=== PATIENT | male | born 1940 | race Caucasian/White ===

== ENCOUNTER 2018-12-31 20:43 | Observation (INO) | payer OTHER ==
--- NOTE | 2018-12-31 21:18 | EDPHY ---
H & P Stated Complaint: increased difficulty walking, Fever, Hx parkinson's recent stem cell tx Time Seen by Provider: 12/31/18 21:17 - Personal History Current Tetanus Diphtheria and Acellular Pertussis (TDAP): Yes - Medical/Surgical History Hx Asthma: No Hx Chronic Respiratory Disease: No Hx Diabetes: No Hx Cardiac Disease: Yes Hx Renal Disease: No Hx Cirrhosis: No Hx Alcoholism: No Hx HIV/AIDS: No Hx Splenectomy or Spleen Trauma: No Other PMH: parkinson, HTN, high cholsterol, pacemaker, CSF Shunt - Social History Smoking Status: Never smoked Constitutional: Initial Vital Signs Temperature (C) 36.9 C 12/31/18 20:49 Heart Rate 91 12/31/18 20:49 Respiratory Rate 16 12/31/18 20:49 Blood Pressure 104/64 12/31/18 20:49 O2 Sat (%) 94 12/31/18 20:49 O2 Delivery Mode Room Air Allergies/Adverse Reactions: JESUS Inhibitors Allergy (Verified 12/31/18 20:49) Home Medications: Medication Instructions Recorded Carbidopa/Levodopa 25/100Mg 1 tab PO TID 12/31/18 [Sinemet 25/100 MG (*)] Cholecalciferol (Vitamin D3) 400 unit PO DAILY 12/31/18 [Vitamin D3] Gabapentin [Neurontin 300 MG (*)] 300 mg PO HS PRN 12/31/18 Glucosamine Sulfate Dipot Chlr 1,000 mg PO DAILY 12/31/18 [Glucosamine] Ibuprofen 200 - 400 mg PO Q6H PRN 12/31/18 Multivitamins [Multivitamin (*)] 1 each PO DAILY 12/31/18 Rivaroxaban [Xarelto] 20 mg PO DAILY 12/31/18 Rivastigmine Tartrate 1.5 mg PO DAILY 12/31/18 [Rivastigmine] Rosuvastatin Calcium [Crestor 20mg 20 mg PO TUTH 12/31/18 (*)] Sertraline HCl [Zoloft 50mg (*)] 50 mg PO DAILY 12/31/18 Medical Decision Making ED Course/Re-evaluation: CHIEF COMPLAINT: Difficulty walking HISTORY OF PRESENT ILLNESS: The patient is a 78 y/o male with a history of Parkinson's disease, stem cell treatment, pacemaker placement, and a CSF shunt complaining of difficulty walking, fever, and confusion since the stem cell treatment last Thursday, 7 days ago. The patient had a stem cell treatment via IV and IM in [place] 7 days ago. The stem cells injected were umbilical cord cells injected systemically. Since the treatment he has had more difficulty walking and developed a fever of 102 degrees. His also noted that he has been more confused, which concerned him. His general parkinsonian symptoms include a shuffling gait. No headache, body aches, lightheadedness, chest pain, heart palpitations, shortness of breath , cough, abdominal pain, urinary or bowel complaints, numbness. REVIEW OF SYSTEMS: A comprehensive 10 system review of systems is otherwise negative aside from elements mentioned in the history of present illness and medical decision making. PHYSICAL EXAM: HR, BP, O2 Sat, RR. Temp noted General Appearance: Alert and appropriate. Head: Atraumatic without scalp tenderness or obvious injury Eyes: Pupils equal, round, reactive to light and accommodation, EOMI, no trauma , no injection. Ears: Clear bilaterally, no perforation, normal landmarks Nose: Atraumatic, no rhinorrhea, clear. Throat: There is no erythema or exudates, no lesions, normal tonsils, mucus membranes moist. Neck: Supple, 2+ carotid upstroke, nontender, no lymphadenopathy. Respiratory: No retractions, no distress, no wheezes, and no accessory muscle use. Lungs are clear to auscultation bilaterally. Cardiovascular: Regular rate and rhythm, no murmurs, rubs, or gallops. Bilateral carotid, radial, dorsalis pedis, and posterior tibial pulses intact. Good capillary refill all extremities. Gastrointestinal: Abdomen is soft, nontender, non-distended, no masses, no rebound, no guarding, no peritoneal signs. Musculoskeletal: Normal active ROM of all extremities, atraumatic. Neurological: Alert, appropriate, and interactive. The patient has normal DTRs and non-focal cranial nerves, motor, sensory, and cerebellar exam. Skin: No rashes, good turgor, no nodules on palpation. Past medical history: Parkinson's, stem cell treatment, hypertension, high cholesterol Past surgical history: Pacemaker, CSF Shunt Family history: Denies Social history: at bedside, retired, does not abuse drug or alcohol DIAGNOSTICS/PROCEDURES/CRITICAL CARE TIME: Not indicated. DIFFERENTIAL DIAGNOSIS: The differential diagnosis for the patient's fever included but was not limited to Parkinsonian exacerbation, pneumonia, urinary tract infection, viral syndrome , meningitis, and sepsis. MEDICAL DECISION MAKING: The patient is a 78 y/o male with a history of Parkinson's disease, stem cell treatment, pacemaker placement, and a CSF shunt presenting with more difficulty walking, a fever of 102 degrees, and confusion since his stem cell treatment last Thursday, 7 days ago. The stem cells injected IV and IM were umbilical cord cells injected systemically. Since the treatment he has had more difficulty walking and developed a fever of 102 degrees. His general parkinsonian symptoms include a shuffling gait. Patient will need to be admitted; labs ordered. 2144: I consulted with the hospitalist service, Dr. Duran accepts admission of this patient. 3: Patient's labs are unremarkable. He is safe to be sent to the floor. 0: Reassessed patient and discussed laboratory findings. I have also discussed plan for admission, which he and his are comfortable with. Patient reports he has a remote history of a stroke, but he has had his symptoms for a week now. Patient can have further stoke/TIA work up on the floor. - Data Points Laboratory Results: Laboratory Results 12/31/18 21:25 12/31/18 21:25 12/31/18 12/31/18 12/31/18 21:25 21:25 21:25 WBC 4.48 10^3/uL 10^3/uL (3.80-9.50) RBC 4.74 10^6/uL 10^6/uL (4.40-6.38) Hgb 14.6 g/dL g/dL (13.7-17.5) Hct 43.5 % % (40.0-51.0) MCV 91.8 fL fL (81.5-99.8) MCH 30.8 pg pg (27.9-34.1) MCHC 33.6 g/dL g/dL (32.4-36.7) RDW 12.8 % % (11.5-15.2) Plt Count 175 10^3/uL 10^3/uL (150-400) MPV 9.5 fL fL (8.7-11.7) Neut % (Auto) 89.9 % H % (39.3-74.2) Lymph % (Auto) 3.3 % L % (15.0-45.0) [place] % (Auto) 5.8 % % (4.5-13.0) Eos % (Auto) 0.4 % L % (0.6-7.6) Baso % (Auto) 0.4 % % (0.3-1.7) Nucleat RBC Rel Count 0.0 % % (0.0-0.2) Absolute Neuts (auto) 4.03 10^3/uL 10^3/uL (1.70-6.50) Absolute Lymphs (auto) 0.15 10^3/uL L 10^3/uL (1.00-3.00) Absolute Monos (auto) 0.26 10^3/uL L 10^3/uL (0.30-0.80) Absolute Eos (auto) 0.02 10^3/uL L 10^3/uL (0.03-0.40) Absolute Basos (auto) 0.02 10^3/uL 10^3/uL (0.02-0.10) Absolute Nucleated RBC 0.00 10^3/uL 10^3/uL (0-0.01) Immature Gran % 0.2 % % (0.0-1.1) Immature Gran # 0.01 10^3/uL 10^3/uL (0.00-0.10) RBC/WBC/PLT Morphology TNP Platelet Estimate TNP PT 16.2 SEC H SEC (12.0-15.0) INR 1.36 H (0.83-1.16) APTT 33.1 SEC SEC (23.0-38.0) VBG Lactic Acid Sodium 135 mEq/L mEq/L (135-145) Potassium 3.9 mEq/L mEq/L (3.5-5.2) Chloride 105 mEq/L mEq/L (97-110) Carbon Dioxide 20 mEq/l L mEq/l (22-31) Anion Gap 10 mEq/L mEq/L (6-14) BUN 25 mg/dL H mg/dL (7-23) Creatinine 1.3 mg/dL mg/dL (0.7-1.3) Estimated GFR 54 Glucose 103 mg/dL H mg/dL (70-100) Calcium 9.6 mg/dL mg/dL (8.5-10.4) Total Bilirubin 1.1 mg/dL mg/dL (0.1-1.4) 12/31/18 21:25 WBC RBC Hgb Hct MCV MCH MCHC RDW Plt Count MPV Neut % (Auto) Lymph % (Auto) [place] % (Auto) Eos % (Auto) Baso % (Auto) Nucleat RBC Rel Count Absolute Neuts (auto) Absolute Lymphs (auto) Absolute Monos (auto) Absolute Eos (auto) Absolute Basos (auto) Absolute Nucleated RBC Immature Gran % Immature Gran # RBC/WBC/PLT Morphology Platelet Estimate PT INR APTT VBG Lactic Acid 1.0 mmol/L mmol/L (0.7-2.1) Sodium Potassium Chloride Carbon Dioxide Anion Gap BUN Creatinine Estimated GFR Glucose Calcium Total Bilirubin Departure - Departure Disposition: [facility] Inpatient Acute Clinical Impression: Parkinson disease, Unable to ambulate Fever Qualifiers: Fever type: due to other condition Qualified Code(s): R50.81 - Fever presenting with conditions classified elsewhere Condition: Fair Report Scribed for: Arnel Fajardo Report Scribed by: Mary Aaron Date of Report: 12/31/18 Time of Report: 21:18
[2018-12-31 21:33] LABS: PLATELET COUNT 175 10^3/uL (150-400)
[2018-12-31 21:41] LABS: INR 1.36 (0.83-1.16); PROTIME(PATIENT) 16.2 SEC (12.0-15.0)
[2018-12-31] MEDS ORDERED: ONDANSETRON DISINTEGRATING 4 MG TAB PO PRN (22:41)
[2018-12-31] MEDS ORDERED: ONDANSETRON 4 MG/2 ML VIAL IVP PRN (22:41)
[2018-12-31] MEDS ORDERED: ACETAMINOPHEN 325 MG TAB PO PRN (22:41)
[2018-12-31] MEDS ORDERED: NS 1,000 ML IV SCH (22:45)
[2019-01-01] MEDS ORDERED: BISACODYL 10 MG SUPP PR PRN (00:22)
[2019-01-01] MEDS ORDERED: POLYETHYLENE GLYCOL 3350 17 GM PKT PO PRN (00:22)
[2019-01-01] MEDS ORDERED: MAGNESIUM HYDROXIDE 30 ML UDCUP PO PRN (00:22)
[2019-01-01] MEDS ORDERED: LACTULOSE 20 GM/30 ML UDCUP PO PRN (00:22)
[2019-01-01 05:11] LABS: PLATELET COUNT 150 10^3/uL (150-400)
--- NOTE | 2019-01-01 05:54 | PDGENHP ---
History and Physical - Chief Complaint Fever, generalized weakness - History of Present Illness Source-patient provides history appears reliable. EMR was reviewed and case discussed with ED provider. HPI-this a very pleasant 78-year-old gentleman with a past medical history significant for Parkinson's, HTN HLD, normal-pressure hydrocephalus status post shunt who presents emergency department today with complaints of fever disorientation and generalized weakness with difficulties walking starting approximately 2-3 p.m. This afternoon. Patient reports a fever up to 102 F. He recently underwent a IV and IM stem cell infusion 1 week ago. Patient denies any acute post infusion reactions. He denies any known sick contacts. He denies any chills, sweats, nausea/vomiting, cough, shortness of breath, dysuria or hematuria. Since his arrival to the ED however patient has reported some urinary retention. He also reports a history of some constipation. No melena or hematochezia. Additionally patient reports that when he wakes up in the morning he has a significant this taste in his mouth but knee denies any reflux burning type symptoms. History Information - Allergies/Home Medication List Allergies/Adverse Reactions: JESUS Inhibitors Allergy (Verified 12/31/18 20:49) Home Medications: Carbidopa/Levodopa 25/100Mg [Sinemet 25/100 MG (*)] 1 tab PO TID 12/31/18 [Last Taken 12/31/18 12:00] Cholecalciferol (Vitamin D3) [Vitamin D3] 400 unit PO DAILY 12/31/18 [Last Taken 12/31/18] Gabapentin [Neurontin 300 MG (*)] 300 mg PO HS PRN 12/31/18 [Last Taken Unknown] Glucosamine Sulfate Dipot Chlr [Glucosamine] 1,000 mg PO DAILY 12/31/18 [Last Taken 12/31/18] Ibuprofen 200 - 400 mg PO Q6H PRN 12/31/18 [Last Taken Unknown] Multivitamins [Multivitamin (*)] 1 each PO DAILY 12/31/18 [Last Taken 12/31/18] Rivaroxaban [Xarelto] 20 mg PO DAILY 12/31/18 [Last Taken 12/30/18] Rivastigmine Tartrate [Rivastigmine] 1.5 mg PO DAILY 12/31/18 [Last Taken 20:00] Rosuvastatin Calcium [Crestor 20mg (*)] 20 mg PO TUTH 12/31/18 [Last Taken 12/30] Sertraline HCl [Zoloft 50mg (*)] 50 mg PO DAILY 12/31/18 [Last Taken 12/31/18] I have personally reviewed and updated: family history, medical history, social history, surgical history - Past Medical History Additional medical history: Parkinson's with recent stem cell infusion IV/IM, HTN, HLD, normal pressure hydrocephalus status post shunt placement. Pacer placement, history of prostate cancer status post brachy therapy 2001. Chronic left upper leg and gluteal pain despite gluteal tendon repair. - Surgical History Additional surgical history: Pacer placement, CSF shunt, cataract extraction with lens placement, gluteal tendon repair - Family History Additional family history: Negative for Parkinson's - Social History Smoking Status: Never smoked Alcohol Use: Rarely Drug Use: None Additional social history: Patient is lives with his . Cor status- full. Review of Systems Review of Systems: ROS: 10pt was reviewed & negative except for what was stated in HPI & below Constitutional: Reports: fever, weight loss (15 lb not unexpected as patient reports that he has had a significant change in diet due to portion sizes and availability at his [facility] facility.) Cardiac: Reports: no symptoms Respiratory: Reports: no symptoms Gastrointestinal: Reports: no symptoms Genitourinary: Reports: other (Retention since arrival to the hospital.) Muscolosketal: Reports: muscle pain (Chronic left gluteal pain.) Physical Exam Physical Exam: Selected Entries 12/31/18 20:49 Blood Pressure Automatic Method Heart Rate 91 Respiratory 16 Rate O2 Sat (%) 94 Temperature (C) 36.9 C Blood Pressure 104/64 Mean Arterial 77 Pressure (MAP) O2 Delivery Room Air Mode Temperature Oral Source Temp Pulse Resp BP Pulse Ox 36.8 C 70 16 129/59 H 92 01/01/19 04:17 01/01/19 04:17 01/01/19 04:17 01/01/19 04:17 01/01/19 04:17 Constitutional: no apparent distress, appears nourished, chronically ill appearing, uncomfortable (With movement.), No other Eyes: PERRL (Lens reflex appreciated bilaterally. Decreased reactivity to light bilaterally otherwise symmetric.), anicteric sclera, EOMI, No scleral injection Ears, Nose, Mouth, Throat: moist mucous membranes, other (No nasal discharge.), No poor dentition Cardiovascular: regular rate and rhythym, no murmur, rub, or gallop, pulses symmetric bilaterally, No edema Peripheral Pulses: 2+: dorsalis-pedis (R), dorsalis-pedis (L) Respiratory: no respiratory distress, no rales or rhonchi, clear to auscultation , No inspiratory crackles, No respiratory distress Gastrointestinal: normoactive bowel sounds, soft, non-tender abdomen, no palpable masses, No distension Genitourinary: no bladder tenderness, No beauchamp in urethra Skin: warm, normal color, no rashes or abrasions Musculoskeletal: full muscle strength (Patient able to sit up independently. Moves all extremities.), other (Some decreased range of motion in the left lower extremity.) Neurologic: AAOx3, sensation intact bilaterally, other (Grossly nonfocal exam.) , No facial droop Psychiatric: interacting appropriately, not anxious, not encephalopathic, thought process linear, flat affect Lymph, Heme, Immunologic: other (Mild nontender submental lymphadenopathy. No supraclavicular, submandibular or cervical LAD.) Lab Data & Imaging Review 01/01/19 04:15 01/01/19 04:15 WBC 2.95 10^3/uL (3.80-9.50) L 01/01/19 04:15 RBC 4.34 10^6/uL (4.40-6.38) L 01/01/19 04:15 Hgb 13.2 g/dL (13.7-17.5) L 01/01/19 04:15 Hct 39.5 % (40.0-51.0) L 01/01/19 04:15 MCV 91.0 fL (81.5-99.8) 01/01/19 04:15 MCH 30.4 pg (27.9-34.1) 01/01/19 04:15 MCHC 33.4 g/dL (32.4-36.7) 01/01/19 04:15 RDW 13.0 % (11.5-15.2) 01/01/19 04:15 Plt Count 150 10^3/uL (150-400) 01/01/19 04:15 MPV 9.8 fL (8.7-11.7) 01/01/19 04:15 Neut % (Auto) 80.4 % (39.3-74.2) H 01/01/19 04:15 Lymph % (Auto) 7.8 % (15.0-45.0) L 01/01/19 04:15 [place] % (Auto) 10.5 % (4.5-13.0) 01/01/19 04:15 Eos % (Auto) 0.7 % (0.6-7.6) 01/01/19 04:15 Baso % (Auto) 0.3 % (0.3-1.7) 01/01/19 04:15 Nucleat RBC Rel Count 0.0 % (0.0-0.2) 01/01/19 04:15 Absolute Neuts (auto) 2.37 10^3/uL (1.70-6.50) 01/01/19 04:15 Absolute Lymphs (auto) 0.23 10^3/uL (1.00-3.00) L 01/01/19 04:15 Absolute Monos (auto) 0.31 10^3/uL (0.30-0.80) 01/01/19 04:15 Absolute Eos (auto) 0.02 10^3/uL (0.03-0.40) L 01/01/19 04:15 Absolute Basos (auto) 0.01 10^3/uL (0.02-0.10) L 01/01/19 04:15 Absolute Nucleated RBC 0.00 10^3/uL (0-0.01) 01/01/19 04:15 Immature Gran % 0.3 % (0.0-1.1) 01/01/19 04:15 Immature Gran # 0.01 10^3/uL (0.00-0.10) 01/01/19 04:15 RBC/WBC/PLT Morphology TNP 01/01/19 04:15 Platelet Estimate TNP 01/01/19 04:15 PT 16.2 SEC (12.0-15.0) H 12/31/18 21:25 INR 1.36 (0.83-1.16) H 12/31/18 21:25 APTT 33.1 SEC (23.0-38.0) 12/31/18 21:25 VBG Lactic Acid 1.0 mmol/L (0.7-2.1) 12/31/18 21:25 Sodium 138 mEq/L (135-145) 01/01/19 04:15 Potassium 3.8 mEq/L (3.5-5.2) 01/01/19 04:15 Chloride 106 mEq/L (97-110) 01/01/19 04:15 Carbon Dioxide 22 mEq/l (22-31) 01/01/19 04:15 Anion Gap 10 mEq/L (6-14) 01/01/19 04:15 BUN 22 mg/dL (7-23) 01/01/19 04:15 Creatinine 1.2 mg/dL (0.7-1.3) 01/01/19 04:15 Estimated GFR 59 01/01/19 04:15 Glucose 85 mg/dL (70-100) 01/01/19 04:15 Calcium 8.5 mg/dL (8.5-10.4) 01/01/19 04:15 Total Bilirubin 0.9 mg/dL (0.1-1.4) 01/01/19 04:15 AST 21 IU/L (17-59) 01/01/19 04:15 ALT 38 IU/L (21-72) 01/01/19 04:15 Alkaline Phosphatase 66 IU/L (38-126) 01/01/19 04:15 Total Protein 5.7 g/dL (6.3-8.2) L 01/01/19 04:15 Albumin 3.3 g/dL (3.5-5.0) L 01/01/19 04:15 Urine Color YELLOW 01/01/19 00:30 Urine Appearance CLEAR 01/01/19 00:30 Urine pH 5.0 (5.0-7.5) 01/01/19 00:30 Ur Specific [place] 1.029 (1.002-1.030) 01/01/19 00:30 Urine Protein NEGATIVE (NEGATIVE) 01/01/19 00:30 Urine Ketones 1+ (NEGATIVE) H 01/01/19 00:30 Urine Blood NEGATIVE (NEGATIVE) 01/01/19 00:30 Urine Nitrate NEGATIVE (NEGATIVE) 01/01/19 00:30 Urine Bilirubin NEGATIVE (NEGATIVE) 01/01/19 00:30 Urine Urobilinogen 2.0 EU (0.2-1.0) H 01/01/19 00:30 Ur Leukocyte Esterase NEGATIVE (NEGATIVE) 01/01/19 00:30 Urine Glucose NEGATIVE (NEGATIVE) 01/01/19 00:30 Nasal Influenza A PCR NEGATIVE FOR FLU A (NEGATIVE) 01/01/19 00:35 Nasal Influenza B PCR NEGATIVE FOR FLU B (NEGATIVE) 01/01/19 00:35 Assessment & Plan Assessment: this a very pleasant 78-year-old gentleman with a past medical history significant for Parkinson's, HTN HLD, normal-pressure hydrocephalus status post shunt who presents emergency department today with complaints of fever disorientation and generalized weakness with difficulties walking starting approximately 2-3 p.m. This afternoon Fever (Acute) - etiology of patient's fever is unclear at this time. He has no evidence of respiratory, GI, urinary sources of infection her symptoms. Blood cultures x2 pending. Patient is having some complaints of urinary retention however bladder scan at bedside shows only 185 mL. Of influenza A/B was negative. UA ultimately is unremarkable except for some ketones and urobilinogen. Will check LFTs. patient does appear little dehydrated. He has not had any complaints or issues since his stem cell infusion 1 week ago but I am unfamiliar at this time whether this might be a potential effect at this point in time. Additional consideration to discuss with his treatment team in the morning pending blood cultures and repeat labs. Hold off on any antibiotic therapy. Monitor blood cultures and for any additional signs of infectious process. Patient does have a CSF shunt as well as a pacer but no evidence clinically that these have been compromised. Parkinson disease (Acute) - status post stem cell infusion. Patient reporting no significant improvement in his symptoms. He states that he should have observed any changes at this point. Patient has been ambulating well and independently from the bathroom to the bed with standby assist from nursing staff. Will provide patient with some gentle IV fluid hydration and monitor. PT OT eval in the morning if still indicated. Resume patient's rivastigmine and carbidopa levodopa. Acute kidney injury - likely pre renal in etiology. Patient with minimal urine in his bladder despite 1 L of IV fluid. Continue with gentle IV fluid hydration overnight. Benign essential HTN blood pressure is acceptable at this time. He is not chronically on any antihypertensives. HLD-resume statin. Chronic pain - continue gabapentin. Tylenol p.r.n. Constipation - bowel program Reflux - Protonix FEN - IV fluids overnight. Diet as tolerated the morning. Electrolytes currently adequate replace if needed. PPX-SCDs. Patient medication listing Xarelto will further clarify in the morning. Cor status-full Disposition-patient admitted observation status at this time on the [facility] floor.
[2019-01-01] MEDS ORDERED: PANTOPRAZOLE SODIUM 40 MG TAB PO SCH (09:00)
[2019-01-01] MEDS ORDERED: SENNOSIDES/DOCUSATE SODIUM TAB PO SCH (09:00)
[2019-01-01] MEDS ORDERED: GABAPENTIN 300 MG CAP PO PRN (09:16)
[2019-01-01] MEDS ORDERED: SERTRALINE HCL 50 MG TAB PO SCH (09:30)
[2019-01-01] MEDS ORDERED: RIVASTIGMINE TARTRATE 1.5 MG CAP PO SCH (09:30)
[2019-01-01] MEDS ORDERED: RIVAROXABAN 20 MG TAB PO SCH ×2 (09:30→18:00)
[2019-01-01] MEDS ORDERED: CARBIDOPA/LEVODOPA 25 MG/100 MG TAB PO SCH (09:30)
[2019-01-01] MEDS ORDERED: CHOLECALCIFEROL VIT D3 1,000 UNITS TAB PO SCH ×2 (09:30→21:00)
--- NOTE | 2019-01-01 09:34 | ASMTCMCOM ---
CM Note CM Note Notes: Pt is a 78 y/o male, with Parkinson's, who presented to the ED with cc/o difficulty walking, fever and confusion since his stem cell treatment last Thursday 7 days ago. Pt lives in [place] with his , Morena, . PT has been ordered. CM will follow for recommendations. D/C Plan: TBD Date Signed: 01/01/2019 09:33 AM Electronically Signed By:Cat Domingo
[2019-01-01 11:13] VITALS: BP 131/64
--- NOTE | 2019-01-01 14:00 | HOSPPROG ---
Hospitalist Progress Note Assessment/Plan: Jose is a 78-year-old gentleman with a past medical history significant for Parkinson's, HTN HLD, normal-pressure hydrocephalus status post shunt who presents emergency department today with complaints of fever disorientation and generalized weakness with difficulties walking starting approximately 2-3 p.m. First encounter, chart reviewed. *FEVER -blood cx pending -Ua shows nothig acute -he has a CSF shunt & pacer -no further fevers during his stay -no cough, temp now 98.1 *parkinson disease -s/p stem cell infusion w improvement of his Parkinsons -resumed his home meds *Acute kidney injury *Benign essential HTN blood pressure is acceptable at this time. He is not chronically on any antihypertensives. *HLD-resume statin. *Chronic pain - continue gabapentin. Tylenol p.r.n. *Constipation - bowel program *Reflux - Protonix *plan: dc home, I will f/u with blood cx and call if positive, their doctor is in [place] and [facility] Subjective: Jose has no complaints. Overall feeling fine. Objective: Vital Signs Temp Pulse Resp BP Pulse Ox 36.6 C 69 16 131/64 H 92 01/01/19 11:13 01/01/19 11:13 01/01/19 11:13 01/01/19 11:13 01/01/19 11:13 Laboratory Results 01/01/19 04:15 01/01/19 04:15 12/31/18 01/01/19 01/02/19 05:59 05:59 05:59 Intake Total 1800 300 Output Total 200 175 Balance 1600 125 PT 16.2 SEC (12.0-15.0) H 12/31/18 21:25 INR 1.36 (0.83-1.16) H 12/31/18 21:25 - Physical Exam Constitutional: no apparent distress, appears nourished, not in pain Eyes: PERRL Ears, Nose, Mouth, Throat: hearing normal Cardiovascular: regular rate and rhythym Respiratory: no respiratory distress Gastrointestinal: normoactive bowel sounds Skin: warm Musculoskeletal: generalized weakness Neurologic: AAOx3 Psychiatric: interacting appropriately ICD10 Worksheet Patient Problems: Problems Problem Status Onset Parkinson disease Acute Fever Acute Unable to ambulate Acute
--- NOTE | 2019-01-01 14:37 | ASMTLACE ---
LACE Length of stay for Answers: 1 day current admission Acuity / Level of Answers: No Care: Did the patient have an inpatient admission? Comorbidities - select Answers: Any tumor (including all that apply lymphoma or leukemia) Other Notes: parkinson's, pace maker, normal-pressure hydrocephalus stent # of Emergency department Answers: 1-2 visits in the last 6 months Score: 5 Date Signed: 01/01/2019 02:37 PM Electronically Signed By:Cat Domingo
--- NOTE | 2019-01-01 14:39 | PDIAF ---
- Diagnosis Diagnosis: fevers, Parkinsons Code Status: Full Code - Medication Management Discharge Medications: electronically signed and located in the Home Medication List. - Orders Services needed: Home Care, Registered Nurse, Physical Therapy Home Care Face to Face: I certify that this patient was under my care and that I had the required [id number] encounter meeting the encounter requirements on the discharge day. My findings support the fact that the patient is homebound as defined in Home Care Face to Face Continued: CMS Chapter 7 Medicare Benefits Manual 30.1.1 , The condition of the patient is such that there exists a normal inability to leave home and consequently, leaving home would require a considerable and taxing effort. Diet Recommendation: no restrictions on diet Diet Texture: Regular Texture Diet Additional Instructions: return to the ER if you develop fever, chills I will call you if you have positive blood cultures home care PT will see you get a repeat CBC with your primary care provider in approximately one week - Labs/Radiology CBC w/diff Date: 01/06/19 - Follow Up Care Current Providers and Referrals: Patient,NotPresent [Unknown] - As per Instructions
--- NOTE | 2019-01-01 14:41 | ASDISCHSUM ---
Discharge Information Plan Status:Home with Home Health Medically Cleared to Leave: Discharge Date: CM D/C Disposition:Home Health Service ADT D/C Disposition: Projected Discharge Date: Transportation at D/C:Family Discharge Delay Reason: Follow-Up Date: Discharge Slot: Final Diagnosis: Placement Information Patient Contact Information Contact Name:GEOVANNA Relationship: Address:[address] [place] [address] Work Phone: [facility]:[employer] Alternate Phone: State/Zip Code:[place] [address] Email: Financial Information Financial Class:Medicare Primary Plan Desc:MEDICARE OUTPATIENT Primary Plan Number:[id number] Secondary Plan Desc:[employer] Secondary Plan Number:[id number] Assessment Information LACE LACE Length of stay for Answers: 1 day current admission Acuity / Level of Answers: No Care: Did the patient have an inpatient admission? Comorbidities - select Answers: Any tumor (including all that apply lymphoma or leukemia) Other Notes: parkinson's, pace maker, normal-pressure hydrocephalus stent # of Emergency department Answers: 1-2 visits in the last 6 months Score: 5 Date Signed: 01/01/2019 02:37 PM Electronically Signed By:Cat Domingo [facility] CM Progress Note CM Note CM Note Notes: Pt is a 78 y/o male, with Parkinson's, who presented to the ED with cc/o difficulty walking, fever and confusion since his stem cell treatment last Thursday 7 days ago. Pt lives in [place] with his , Morena, . PT has been ordered. CM will follow for recommendations. D/C Plan: TBD Date Signed: 01/01/2019 09:33 AM Electronically Signed By:Cat Domingo Case Management Discharge Plan Note Case Management Discharge Discharge Order Complete? Answers: Yes Patient to Obtain Answers: via Family Medications Transportation Arranged Answers: Family/Friends Faxed Final Orders Answers: Yes Agency/Facility Transfer Answers: Yes Report Printed & Faxed to Receiving Agency Family Notified Answers: Yes Discharge Comments Notes: [facility] has accepted pt for PT; they have been alerted that he is discharging. Pt lives at the [facility] and they plan to also check with them to see if they can provide PT. If they can, and the coverage is the same, they may cancel [facility]. Date Signed: 01/01/2019 02:40 PM Electronically Signed By:Cat Domingo Intervention Information
--- NOTE | 2019-01-01 14:41 | ASMTDCNOTE ---
Case Management Discharge Discharge Order Complete? Answers: Yes Patient to Obtain Answers: via Family Medications Transportation Arranged Answers: Family/Friends Faxed Final Orders Answers: Yes Agency/Facility Transfer Answers: Yes Report Printed & Faxed to Receiving Agency Family Notified Answers: Yes Discharge Comments Notes: [facility] has accepted pt for PT; they have been alerted that he is discharging. Pt lives at the [facility] and they plan to also check with them to see if they can provide PT. If they can, and the coverage is the same, they may cancel [facility]. Date Signed: 01/01/2019 02:40 PM Electronically Signed By:Cat Domingo
--- NOTE | 2019-01-02 03:32 | GDS ---
[f rep st] DISCHARGE SUMMARY DISCHARGE DIAGNOSES: 1. Fevers. 2. Parkinson's disease. 3. Acute kidney injury. 4. Hypertension. 5. Hyperlipidemia. 6. Chronic pain. 7. Constipation. 8. Reflux. HISTORY: Briefly, the patient is a 78-year-old gentleman with a past medical history significant for Parkinson's, hypertension, hyperlipidemia, normal-pressure hydrocephalus status post shunt who prese nted to the emergency department with complaints of fever and generalized weakness. He was admitted for further care. HOSPITAL COURSE BY PROBLEMS: 1. Fever. His urinalysis shows nothing acute. His CBC is stable. His procalcitonin is stable. He has been afebrile throughout his whole stay. The nurse just checked his temperature, and now it is noted to be 98.1. I explained to the family if he develops any worsening fevers or chills to return to the ER. 2. Parkinson's. He is status post stem cell infusion. He had told the admitting physician he thoug ht it helped his Parkinson's. During my interview today, he is not sure it has helped. He may have had some type of mild reaction from this in addition. 3. Acute kidney injury, resolved. 4. Hypertension, stable. 5. Hyperlipidemia, on statin. 6. Chronic pain, on gabapentin. 7. Constipation, bowel protocol. 8. Reflux, on Protonix. DISCHARGE CONDITION: Stable. VITAL SIGNS: Blood pressure is 131/64, heart rate is 69, respiratory rate is 16, O2 sats on room air 92%, temperature is 36.6 Celsius. MEDICATIONS AT DISCHARGE: Please see the EMR. DISCHARGE INSTRUCTIONS: 1. Return to the ER if he develops fever or chills. 2. Follow up with his blood cultures because they are currently pending. 3. Home Care, Physical Therapy, and Occupational Therapy to work with him. 4. Repeat CBC with his primary care provider in approximately 1 week. /[id number]/MODL
[2019-01-02] MEDS ORDERED: MULTIVITAMINS 1 EACH TAB PO SCH (09:00)
[2019-01-04] MEDS ORDERED: ROSUVASTATIN CALCIUM 20 MG TAB PO SCH (09:16)
== END 2019-01-01 15:11 | disposition home health service (06) ==
LOC: F3N 23:08
PROVIDERS: ADMIT Family Medicine; ATTEND Internal Medicine
DX: R50.9 Fever, unspecified (principal); G20 Parkinson's disease; N17.9 Acute kidney failure, unspecified; I10 Essential (primary) hypertension; E78.5 Hyperlipidemia, unspecified; K59.00 Constipation, unspecified; K21.9 Gastro-esophageal reflux disease without esophagitis; G89.29 Other chronic pain; Z95.0 Presence of cardiac pacemaker; Z98.2 Presence of cerebrospinal fluid drainage device
CPT/HCPCS: 97116; 97162; 99285; G0378